=== PATIENT | male | born 1980 | race Asian ===

== ENCOUNTER 2018-12-21 10:07 | Emergency (ER) | payer SELFPAY ==
[~2018-12-21] VITALS: Ht 172.7 cm; Wt 70.0 kg
[2018-12-21] MEDS ORDERED: DIPHENHYDRAMINE 50MG/ML VIAL IV ONE (10:45)
[2018-12-21] MEDS ORDERED: FAMOTIDINE 20MG/2ML VIAL IV ONE (10:45)
[2018-12-21] MEDS ORDERED: METHYLPREDNISOLONE SOD SUCC 125 MG/2 ML VIAL IV ONE (10:45)
[2018-12-21 11:42] VITALS: BP 133/87
== END 2018-12-21 12:11 | disposition home or self-care (01) ==
LOC: ER 10:07
DX: T78.40XA Allergy, unspecified, initial encounter (principal); X58.XXXA Exposure to other specified factors, initial encounter
CPT/HCPCS: 96374; 96375; 99283; J1200; J2930; J3490